=== PATIENT | male | born 1980 | race Two or more races ===

== ENCOUNTER → 2021-05-15 07:23 | Outpatient (CLI) | payer OTHER | END | disposition home or self-care (01) | LOC: LAB 07:23 | PROVIDERS: ATTEND Internal Medicine | DX: E11.69 Type 2 diabetes mellitus with other specified complication (principal); E03.8 Other specified hypothyroidism; E53.8 Deficiency of other specified B group vitamins; E55.9 Vitamin D deficiency, unspecified; D64.89 Other specified anemias; E78.00 Pure hypercholesterolemia, unspecified; N39.0 Urinary tract infection, site not specified; R80.8 Other proteinuria; I10 Essential (primary) hypertension ==

== ENCOUNTER → 2021-06-07 | Emergency (ER) | payer OTHER ==
[~2021-06-07] VITALS: Ht 193 cm; Wt 165.6 kg
[~2021-06-07] MED LIST: AMLODIPINE BESYL5 MG PO
== END | disposition home or self-care (01) ==
LOC: ER 10:27
DX: B34.9 Viral infection, unspecified (principal); Z03.818 Encounter for observation for suspected exposure to other biological agents ruled out

== ENCOUNTER 2022-01-22 09:52 | Emergency (ER) | payer OTHER ==
[~2022-01-22] VITALS: Ht 193 cm; Wt 167.8 kg
[2022-01-22] MEDS ORDERED: ZITHROMAX500 MG PO (13:42)
== END 2022-01-22 14:46 | disposition home or self-care (01) ==
LOC: ER 09:52
DX: B34.9 Viral infection, unspecified (principal); I10 Essential (primary) hypertension; Z20.822 Contact with and (suspected) exposure to COVID-19

== ENCOUNTER 2022-04-03 22:37 | Emergency (ER) | payer OTHER ==
[~2022-04-03] VITALS: Ht 193 cm; Wt 163.3 kg
[~2022-04-03 22:37] MED LIST changes: +ZITHROMAX500 MG PO
[2022-04-03] MEDS ORDERED: AMLODIPINE (23:03)
[2022-04-04] MEDS ORDERED: KETO10TA2 PO (03:26)
== END 2022-04-04 05:07 | disposition home or self-care (01) ==
LOC: ER 22:37
DX: R07.9 Chest pain, unspecified (principal); I10 Essential (primary) hypertension

== ENCOUNTER 2023-07-31 09:54 | Emergency (ER) | payer OTHER ==
[~2023-07-31] VITALS: Ht 193 cm; Wt 165.6 kg
[~2023-07-31 09:54] MED LIST changes: +AMLODIPINE; +KETO10TA2 PO
[2023-07-31] MEDS ORDERED: DICLOFENAC SODI75 MG PO (10:30)
[2023-07-31] MEDS ORDERED: NORFLEX100MG PO (10:30)
== END 2023-07-31 11:04 | disposition home or self-care (01) ==
LOC: ER 09:54
DX: M54.50 Low back pain, unspecified (principal); I10 Essential (primary) hypertension